=== PATIENT | female | born 1980 | race African-American/Black ===

== ENCOUNTER 2021-08-23 05:45 | Emergency (ER) | payer OTHER ==
[~2021-08-23] VITALS: Ht 157.5 cm; Wt 95.9 kg
[2021-08-23] MEDS ORDERED: EPIPEN 2-PAK1 MG/ML MR (06:03)
[2021-08-23 06:42] LABS: BASO # 0.02 K/mm3 (0.02-0.10); EOS # 0.03 K/mm3 (0.04-0.40); EOS % 0.6 % (1.0-5.0); HEMATOCRIT 37.1 % (37.0-47.0); HEMOGLOBIN 11.9 g/dL (12.5-16.0); LYMPH# 1.12 K/mm3 (1.50-4.00); MEAN CELL VOLUME 90 fl (78-100); MEAN CORPUSCULAR HEMOGLOBIN 29 pg (27-31); MEAN CORPUSCULAR HGB CONC 32 g/dL (33-37); MEAN PLATELET VOLUME 11.2 fl (7.4-10.4); MONO # 0.47 K/mm3 (0.20-0.80); NEU # 3.43 K/mm3 (1.40-6.50); PLATELET COUNT 278 K/mm3 (130-400); RED BLOOD COUNT 4.12 M/mm3 (4.10-5.30); RED CELL DISTRIBUTION WIDTH 13.4 % (11.5-14.5); WHITE BLOOD COUNT 5.1 K/mm3 (4.8-10.8)
[2021-08-23 06:46] LABS: ALBUMIN 4.3 g/dL (3.5-5.0); POTASSIUM 3.7 mmol/L (3.5-5.1)
[2021-08-23 06:47] LABS: CALCIUM 9.5 mg/dL (8.3-10.5)
[2021-08-23 06:48] LABS: TOTAL PROTEIN 8.3 g/dL (6.4-8.3)
[2021-08-23 06:50] LABS: TOTAL BILIRUBIN 0.3 mg/dL (0.2-1.2)
[2021-08-23 07:02] LABS: URINE WBC 0 /hpf (0-3)
[2021-08-23 07:16] LABS: URINE APPEARANCE CLOUDY; URINE COLOR YELLOW
[2021-08-23 07:17] LABS: PH-URINE 7.5 (5.0 - 8.0); URINE BILIRUBIN NEGATIVE (NEGATIVE); URINE BLOOD TRACE (NEGATIVE); URINE GLUCOSE NEGATIVE (NEGATIVE); URINE KETONE NEGATIVE (NEGATIVE); URINE LEUKOCYTE ESTERASE NEGATIVE (NEGATIVE); URINE NITRATE NEGATIVE (NEGATIVE); URINE PROTEIN(semi-quant) NEGATIVE (NEGATIVE); URINE UROBILINOGEN NORMAL (NORMAL)
[2021-08-23 12:35] VITALS: BP 122/80
== END 2021-08-23 12:35 | disposition short-term general hospital (02) ==
LOC: ED 05:45
PROVIDERS: Nurse Practitioner Family
DX: R10.11 Right upper quadrant pain (principal); R11.2 Nausea with vomiting, unspecified
CPT/HCPCS: J1200; J2270; J2405; J2765; J3010; J7030